=== PATIENT | female | born 1990 | race African-American/Black ===

== ENCOUNTER 2018-10-07 03:17 | Emergency (ER) | payer MEDICAID ==
[~2018-10-07] VITALS: Ht 165.1 cm; Wt 73.0 kg
[2018-10-07] MEDS ORDERED: IBUPROFEN 800MG TABLET PO ONE (05:00)
[2018-10-07 05:25] VITALS: BP 152/94
== END 2018-10-07 05:27 | disposition home or self-care (01) ==
LOC: ER 03:17
DX: H92.03 Otalgia, bilateral (principal); F17.200 Nicotine dependence, unspecified, uncomplicated; F12.10 Cannabis abuse, uncomplicated; F31.9 Bipolar disorder, unspecified
CPT/HCPCS: 99283

== ENCOUNTER 2018-10-10 13:12 | Emergency (ER) | payer MEDICAID ==
[~2018-10-10] VITALS: Ht 170.2 cm; Wt 77.0 kg
[2018-10-10 14:46] LABS: BASOPHILS % 0.7 % (0.0-2.0); EOSINOPHILS % 1.1 % (0.0-5.0); HEMATOCRIT. 34.5 % (36.0-48.0); HEMOGLOBIN. 11.5 g/dL (12.0-16.0); MEAN CORPUSCULAR HEMOGLOBIN 32.7 pg (28.0-32.0); MEAN CORPUSCULAR VOLUME 97.8 fL (81.0-99.0); MEAN PLATELET VOLUME 6.8 fl (7.4-10.4); MONOCYTES % 7.5 % (2.0-8.0); NEUTROPHILS % 70.7 % (40.0-76.0); PLATELET 329 x1000/uL (130-400); RED BLOOD CELL COUNT 3.53 mill/uL (4.2-5.4); RED CELL DISTRIBUTION WIDTH 13.1 % (11.6-14.6)
[2018-10-10 14:53] LABS: CHLORIDE 107 mEq/L (98-107)
[2018-10-10 15:03] LABS: B-HCG QUANTITATIVE < 1 mIU/mL (<3)
[2018-10-10 16:01] LABS: CLARITY URINE CLEAR (CLEAR); COLOR URINE YELLOW (YELLOW); KETONES URINE TRACE (NEGATIVE); LEUKOCYTE ESTERASE URINE NEGATIVE (NEGATIVE); NITRITE URINE NEGATIVE (NEGATIVE); OCCULT BLOOD URINE 1+ (NEGATIVE); PROTEIN URINE NEGATIVE (NEGATIVE); SPECIFIC GRAVITY URINE 1.014 (1.005-1.030); UROBILINOGEN URINE 0.2 E.U./dL (0.2-1.0)
[2018-10-10 16:48] LABS: ETHANOL BLOOD < 10 mg/dL
[2018-10-11 09:10] LABS: *BARBITURATES SCREEN URINE NEGATIVE (NEGATIVE); *BENZODIAZEPINES SCREEN URINE NEGATIVE (NEGATIVE); *COCAINE SCREEN URINE NEGATIVE (NEGATIVE); METHADONE URINE SCREEN NEGATIVE (NEGATIVE); OPIATES URINE SCREEN NEGATIVE (NEGATIVE)
[2018-10-11 09:11] LABS: *AMPHETAMINES SCREEN URINE PRESUMTIVE POSITIVE (NEGATIVE); CANNABINOID URINE SCREEN NEGATIVE (NEGATIVE); PHENCYCLIDINE URINE SCREEN NEGATIVE (NEGATIVE)
[2018-10-11 13:45] VITALS: BP 111/67
== END 2018-10-11 14:20 | disposition home or self-care (01) ==
LOC: ER 13:32
DX: N93.9 Abnormal uterine and vaginal bleeding, unspecified (principal); Z59.0 Homelessness
CPT/HCPCS: 36415; 80048; 80305; 80307; 80320; 80329; 84702; 86850; 86900; 99283; G0480

== ENCOUNTER 2018-10-16 21:39 | Emergency (ER) | payer MEDICAID ==
[~2018-10-16] VITALS: Ht 165.1 cm; Wt 91.9 kg
[2018-10-17 01:54] LABS: CLARITY URINE CLEAR (CLEAR); COLOR URINE YELLOW (YELLOW); KETONES URINE NEGATIVE (NEGATIVE); LEUKOCYTE ESTERASE URINE NEGATIVE (NEGATIVE); NITRITE URINE NEGATIVE (NEGATIVE); OCCULT BLOOD URINE NEGATIVE (NEGATIVE); PROTEIN URINE NEGATIVE (NEGATIVE); SPECIFIC GRAVITY URINE 1.001 (1.005-1.030); UROBILINOGEN URINE 0.2 E.U./dL (0.2-1.0)
[2018-10-17 02:51] LABS: CHLORIDE 104 mEq/L (98-107)
[2018-10-17 03:36] LABS: BASOPHILS % 0.9 % (0.0-2.0); HEMATOCRIT. 37.1 % (36.0-48.0); HEMOGLOBIN. 12.4 g/dL (12.0-16.0); LYMPHOCYTES % 27.7 % (20.0-50.0); MEAN CORPUSCULAR HEMOGLOBIN 32.1 pg (28.0-32.0); MEAN CORPUSCULAR VOLUME 96.3 fL (81.0-99.0); MEAN PLATELET VOLUME 6.9 fl (7.4-10.4); MONOCYTES % 9.5 % (2.0-8.0); NEUTROPHILS % 60.9 % (40.0-76.0); PLATELET 332 x1000/uL (130-400); RED BLOOD CELL COUNT 3.86 mill/uL (4.2-5.4); RED CELL DISTRIBUTION WIDTH 13.5 % (11.6-14.6)
[2018-10-17 05:22] VITALS: BP 114/74
== END 2018-10-17 05:26 | disposition home or self-care (01) ==
LOC: ER 21:39
DX: N83.202 Unspecified ovarian cyst, left side (principal); F17.200 Nicotine dependence, unspecified, uncomplicated
CPT/HCPCS: 36415; 76856; 80053; 81003; 81025; 83690; 85025; 99284; Z7610

== ENCOUNTER 2018-10-18 04:09 | Emergency (ER) | payer MEDICAID ==
[~2018-10-18] VITALS: Ht 170.2 cm; Wt 63.0 kg
[2018-10-18] MEDS ORDERED: KETOROLAC 30MG/ML VIAL IV STA (06:25)
[2018-10-18 06:59] LABS: BASOPHILS % 0.9 % (0.0-2.0); EOSINOPHILS % 0.7 % (0.0-5.0); HEMATOCRIT. 38.2 % (36.0-48.0); HEMOGLOBIN. 12.6 g/dL (12.0-16.0); LYMPHOCYTES % 22.9 % (20.0-50.0); MEAN CORPUSCULAR HEMOGLOBIN 31.4 pg (28.0-32.0); MEAN CORPUSCULAR VOLUME 95.5 fL (81.0-99.0); MONOCYTES % 9.3 % (2.0-8.0); NEUTROPHILS % 66.2 % (40.0-76.0); PLATELET 359 x1000/uL (130-400); RED CELL DISTRIBUTION WIDTH 13.3 % (11.6-14.6)
[2018-10-18 07:03] LABS: CHLORIDE 102 mEq/L (98-107)
[2018-10-18 07:04] LABS: PROTHROMBIN TIME 10.4 sec (9.6-11.0)
[2018-10-18 07:14] LABS: HCG SCREEN NEGATIVE
[2018-10-18 07:23] LABS: CLARITY URINE CLEAR (CLEAR); COLOR URINE YELLOW (YELLOW); KETONES URINE NEGATIVE (NEGATIVE); LEUKOCYTE ESTERASE URINE NEGATIVE (NEGATIVE); NITRITE URINE NEGATIVE (NEGATIVE); OCCULT BLOOD URINE NEGATIVE (NEGATIVE); PH URINE 7.5 (4.5-8.0); PROTEIN URINE NEGATIVE (NEGATIVE); SPECIFIC GRAVITY URINE 1.009 (1.005-1.030)
[2018-10-18 07:51] VITALS: BP 128/90
== END 2018-10-18 08:30 | disposition home or self-care (01) ==
LOC: ER 04:09
DX: R10.9 Unspecified abdominal pain (principal); R07.89 Other chest pain; J45.909 Unspecified asthma, uncomplicated; F17.200 Nicotine dependence, unspecified, uncomplicated; F12.10 Cannabis abuse, uncomplicated
CPT/HCPCS: 36415; 80053; 81003; 83690; 84703; 85025; 85610; 93005; 96374; 99284; J1885; Z7610

== ENCOUNTER 2020-12-10 08:42 | Emergency (ER) | payer MEDICAID ==
[~2020-12-10] VITALS: Ht 167.6 cm; Wt 59.0 kg
[2020-12-10 09:20] VITALS: BP 135/82
[2020-12-10] MEDS ORDERED: ONDANSETRON HCL 4MG/2ML INJ IV STA (09:24)
[2020-12-10] MEDS ORDERED: KETOROLAC 30MG/ML VIAL IV STA (09:24)
[2020-12-10] MEDS ORDERED: SODIUM CHLORIDE 0.9% 1,000 ML IV ONE (09:30)
== END 2020-12-10 09:50 | disposition home or self-care (01) ==
LOC: ER 08:58
DX: R10.9 Unspecified abdominal pain (principal); J45.909 Unspecified asthma, uncomplicated; D64.9 Anemia, unspecified
CPT/HCPCS: 99281; J7030